=== PATIENT | male | born 1995 ===

== ENCOUNTER 2016-06-30 12:06 | Emergency (ER) | payer OTHER ==
[2016-06-30 12:47] VITALS: BP 119/71
--- NOTE | 2016-06-30 12:51 | UC ---
Throat Pain/Nasal Bill HPI - HPI Summary HPI Summary: awoke with st and swollen glands similar to when he had strep in February no cough - History of Current Complaint Chief Complaint: UCGeneralIllness Stated Complaint: THROAT COMPLAINT Time Seen by Provider: 06/30/16 12:46 Hx Obtained From: Patient Onset/Duration: Sudden Onset, Lasting Days - 1, Still Present Severity: Severe Pain Intensity: 10 Pain Scale Used: 0-10 Numeric Cough: None Associated Signs & Symptoms: Positive: Nasal Discharge - Allergies/Home Medications Allergies/Adverse Reactions: Allergies Allergy/AdvReac Type Severity Reaction Status Date / Time No Known Allergies Allergy Verified 06/30/16 12:41 Home Medications: Home Medications Acetaminophen TAB* [Tylenol TAB*] 2 tab PO PRN 06/30/16 [History] PMH/Surg Hx/FS Hx/Imm Hx Previously Healthy: Yes - Surgical History Surgical History: None - Family History Known Family History: Positive: None Family History: No reported cardiovascular issues in family lineage - Social History Occupation: Student Lives: With Family Alcohol Use: Weekly Alcohol Amount: WEEKENDS Substance Use Type: None Smoking Status (MU): Never Smoked Tobacco Review of Systems Constitutional: Chills, Fatigue Skin: Negative Eyes: Negative ENT: Sore Throat Respiratory: Negative Cardiovascular: Negative Gastrointestinal: Negative Genitourinary: Negative Motor: Negative Neurovascular: Negative Musculoskeletal: Negative Neurological: Negative Psychological: Negative All Other Systems Reviewed And Are Negative: Yes Physical Exam Triage Information Reviewed: Yes Appearance: Well-Appearing, No Pain Distress, Well-Nourished Vital Signs: Initial Vital Signs Temp 97.6 F 06/30/16 12:42 Pulse 80 06/30/16 12:42 Resp 18 06/30/16 12:42 BP 119/71 06/30/16 12:42 Pulse Ox 100 06/30/16 12:42 Vital Signs Reviewed: Yes Eye Exam: Normal Eyes: Positive: Conjunctiva Clear ENT Exam: Normal ENT: Positive: Normal ENT inspection, Hearing grossly normal, Pharyngeal erythema, TMs normal, Tonsillar swelling, Trismus, Muffled/hoarse voice. Negative: Nasal congestion, Nasal drainage, Tonsillar exudate Dental Exam: Normal Neck exam: Normal Neck: Positive: Supple, Nontender, No Lymphadenopathy Respiratory Exam: Normal Respiratory: Positive: Chest non-tender, Lungs clear, Normal breath sounds, No respiratory distress, No accessory muscle use Cardiovascular Exam: Normal Cardiovascular: Positive: RRR, No Murmur, Pulses Normal, Brisk Capillary Refill Abdominal Exam: Normal Abdomen Description: Positive: Nontender, No Organomegaly, Soft Bowel Sounds: Positive: Present Musculoskeletal Exam: Normal Musculoskeletal: Positive: Strength Intact, ROM Intact, No Edema Neurological Exam: Normal Neurological: Positive: Alert, Muscle Tone Normal Psychological Exam: Normal Skin Exam: Normal Diagnostics - Laboratory Diagnostic Studies Completed/Ordered: RST(+) Throat Pain/Nasal Course/Dx - Course Assessment/Plan: amoxicillin, tylenol, ibuprofen increase fluids rest follow with pcp prn - Differential Dx/Diagnosis Differential Diagnosis/HQI/PQRI: Laryngitis, Otitis Media, Pharyngitis, Sinusitis, URI Provider Diagnoses: Strep Pharyngitis Discharge - Discharge Plan Condition: Stable Disposition: HOME Prescriptions: Amoxicillin CAP* [Amoxicillin 500 MG CAP*] 500 mg PO TID #18 cap Patient Education Materials: Ibuprofen (By mouth), Amoxicillin (By mouth), Strep Throat (ED) Forms: *School Release Referrals: [facility] [Outside] - If Needed
[2016-06-30] MEDS ORDERED: Amoxicillin CAP* 500 MG PO ONE ×2 (13:05)
== END 2016-06-30 13:20 | disposition home or self-care (01) ==
LOC: UCEAST 12:06
DX: J02.0 Streptococcal pharyngitis (principal)
CPT/HCPCS: 87651; 99212; A9270-GY; G0463